=== PATIENT | male | born 1940 | race Caucasian/White ===

== ENCOUNTER 2017-06-02 09:22 | Inpatient (IN) | payer MEDICARE, BC ==
--- NOTE | 2017-05-27 16:13 | HP ---
HISTORY AND PHYSICAL: DATE OF SURGERY: 06/02/17 DATE OF OFFICE VISIT: 05/22/17 SURGEON: Melissa Hough MD * (DICTATED BY NIGHAT HOWARD) PROCEDURE: Revision of a left total knee arthroplasty. CHIEF COMPLAINT: Left knee pain. HISTORY OF PRESENT ILLNESS: Mr. Rodríguez is a 77-year-old gentleman with complaints of left knee pain, he is status post left total knee arthroplasty. He has failed conservative management. He has elected to proceed with a revision of a left total knee arthroplasty, which is scheduled for 06/02/[address] Hough. PAST MEDICAL HISTORY: Sleep apnea, history of prostate cancer. PAST SURGICAL HISTORY: Prostatectomy, bilateral total knee arthroplasties, tonsillectomy, and penile implant. CURRENT MEDICATIONS: 1. Exelon. 2. [place]orest. 3. Fish oil. 4. Multivitamin. ALLERGIES: No known drug allergies. FAMILY HISTORY: Diabetes, stroke, heart disease, prostate cancer. SOCIAL HISTORY: He is a 77-year-old gentleman. He lives with his . He does not smoke, use drugs or alcohol. REVIEW OF SYSTEMS: A complete 14-point review of systems was reviewed with the patient, was all negative and noncontributory. PHYSICAL EXAMINATION GENERAL: He is well developed, well nourished, in no acute distress. VITAL SIGNS: He stands 6 feet tall, weighs 215 pounds. Blood pressure 115/69, heart rate 66. HEENT: Normocephalic, atraumatic. NECK: Supple. No palpable lymph nodes. PULMONARY: Lungs are clear to auscultation bilaterally. CARDIO: Regular rate and rhythm. Strong S1, S2. ABDOMEN: Soft, nontender, nondistended. NEUROLOGIC: Alert and oriented x3. Cranial nerves II through XII are intact. MUSCULOSKELETAL: Left lower extremity, the skin is intact. There are no open wounds or abrasions. There is a moderate effusion, 10 to 120 degrees of flexion with patellofemoral crepitus, 5/5 lower extremity strength, 2+ dorsalis pedis pulses, and intact sensation. ASSESSMENT AND PLAN: Mr. Rodríguez is a 77-year-old gentleman, who had a left total knee arthroplasty with Dr. Mederos in 2006. Over the last 5 years, he has developed increasing pain in his left knee and he has failed conservative management. He has elected to proceed with a revision of a left total knee arthroplasty, the surgery is scheduled for 06/02/[address] Hough discussed the risks and benefits of the surgery at today's visit and all of his questions were answered. Coumadin and Colace were sent to his pharmacy for postoperative DVT prophylaxis. He currently has a prescription for pain medication, so no pain medications were sent at today's visit. He will follow up with Dr. Hough 2 weeks after the surgery. NIGHAT HOWARD [id number]/[facility] #: [id number] MARY
[~2017-06-02 09:22] MED LIST: Buffered Lidocaine 0.9% SYRIN* 5 ML/SYR SYRINGE INTRADERM ONE; Famotidine IV* 10 MG/ML 2 ML (20 mg) IV ONE
[2017-06-02] MEDS ORDERED: Famotidine IV* 10 MG/ML 2 ML (20 mg) ONE (09:31)
[2017-06-02] MEDS ORDERED: Buffered Lidocaine 0.9% SYRIN* 5 ML/SYR SYRINGE ONE (09:31)
[2017-06-02] MEDS ORDERED: ceFAZolin 2 GM in 100 MLS NS (*) BAG IVPB ONE (09:31)
[2017-06-02] MEDS ORDERED: Bupivacaine 0.5% SDV PF* 30 ML VIAL ONE (11:03)
[2017-06-02] MEDS ORDERED: Ketorolac INJ* 30 MG/ML 1 ML VIAL ONE (11:03)
[2017-06-02] MEDS ORDERED: Ondansetron INJ* 2 MG/ML VIAL ONE (11:03)
[2017-06-02] MEDS ORDERED: Dexamethasone IV* 4 MG/ML 1 ML (4 MG) ONE (11:03)
[2017-06-02] MEDS ORDERED: Lidocaine 2% PF * 5 ML VIAL ONE (11:03)
[2017-06-02] MEDS ORDERED: Propofol* 10 MG/ML 20 ML BTL IV PUSH ONE (11:03)
[2017-06-02] MEDS ORDERED: KETAMINE HCL* 50 MG/ML 10 ML VIAL ONE (11:03)
[2017-06-02] MEDS ORDERED: fentaNYL* 50 MCG/ML 2 ML VIAL (100 MCG VIAL) ONE (11:03)
[2017-06-02] MEDS ORDERED: Midazolam* 1 MG/ML 5 ML VIAL (5 MG) ONE (11:04)
[2017-06-02] MEDS ORDERED: Morphine PF AMP (0.5MG/ML)* 5 MG/10 ML AMP ONE (11:04)
[2017-06-02] MEDS ORDERED: Propofol* 500 MG/50 ML BTL ONE (13:59)
[2017-06-02] MEDS ORDERED: Phenylephrine IV* 40 MCG/ML 10 ML SYRINGE ONE (14:56)
--- NOTE | 2017-06-02 15:50 | CONS ---
CONSULTATION NOTE: DATE OF CONSULTATION: 06/02/17 PROCEDURE: Placement of urethral coude catheter, 14-Azerbaijani. HISTORY OF PRESENT ILLNESS: Mr. Rodríguez is a 77-year-old male who is scheduled today to have a revision of a total knee prosthesis by Dr. Hough. Patient had radical prostatectomy in 2002 for prostate carcinoma by Dr. Stern in [place]. In 2010, he had placement of an inflatable penile prosthesis. Both procedures seem to have gone well. He has not had any voiding symptoms and no hematuria or urinary tract infections. Because of concern about possible urethral stricture or bladder neck contracture, consultation was requested by Dr. Torres for placement of a urethral catheter preoperatively. On exam, he has no suprapubic distention. The external genitalia looked normal. It is circumcised. I could feel the penile prosthesis in the correct position. Exam of the testes felt normal. PROCEDURE IN DETAIL: Patient was prepped and draped for urethral catheterization. A size 14-Azerbaijani coude catheter was then passed inside the bladder without any trauma and no resistance was encountered in the urethra or at the bladder neck. Clear urine was drained. The plan is to keep the Patricia catheter as per routine for joint replacement. I do not expect that he will have any voiding problems postoperatively. If there are problems with voiding or hematuria, I will see him in followup. [id number]/[facility] #: [id number] MARY
[2017-06-02] MEDS ORDERED: Acetaminophen IV 1GM/100ML * 100 ML IVPB ONE (16:37)
[2017-06-02] MEDS ORDERED: Ondansetron INJ* 2 MG/ML VIAL IV PRN ×2 (16:37→16:39)
[2017-06-02] MEDS ORDERED: oxyCODONE/Acetamin 5/325 MG* TAB PO PRN ×2 (16:39)
[2017-06-02] MEDS ORDERED: diPHENhydraMINE IV* 50 MG/ML 1 ml VIAL (BENADRYL) IV PRN (16:39)
[2017-06-02] MEDS ORDERED: EPHEDrine (Pressors)* 50 MG/ML VIAL IV PUSH PRN (16:39)
[2017-06-02] MEDS ORDERED: Lactated Ringers 500 ml BAG* 500 ML IV PRN (16:39)
[2017-06-02] MEDS ORDERED: Naloxone* 0.4 MG/ML 1 ML VIAL IV PRN (16:44)
[2017-06-02] MEDS ORDERED: Ropivacaine* 300 MG in NS 0.9% 250 ML* 240 ML EPIDURAL SCH (17:00)
[2017-06-02] MEDS ORDERED: Acetaminophen TAB* 325 MG PO PRN (17:12)
[2017-06-02] MEDS ORDERED: Bisacodyl SUPP* 10 MG SUPP PR PRN (17:12)
[2017-06-02] MEDS ORDERED: Polyethylene Glycol 3350* 17 GM PACKET PO PRN (17:12)
[2017-06-02] MEDS ORDERED: diPHENhydraMINE IV* 50 MG/ML 1 ml VIAL (BENADRYL) ONE (18:15)
[2017-06-02] MEDS ORDERED: QUEtiapine TAB* 25 MG PO PRN (18:29)
[2017-06-02] MEDS ORDERED: ceFAZolin 1 GM VIAL(*) 1 GM in NS 0.9% 50 ML* 50 ML IVPB SCH (20:00)
[2017-06-02] MEDS ORDERED: Warfarin TAB(*) 6 MG PO ONE (20:00)
--- NOTE | 2017-06-02 20:06 | RAD ---
CPT II Codes: 6045F INDICATION: Left total knee revision TECHNIQUE: Intraoperative fluoroscopy was provided during left total knee revision surgery. FINDINGS: 2 spot films depict anatomic placement of a left knee prosthesis. Fluoroscopy time: 16 seconds IMPRESSION: As above.
--- NOTE | 2017-06-02 20:10 | RAD ---
INDICATION: Status post left total knee arthroplasty revision COMPARISON: Left knee radiograph dated March 11, 1970 TECHNIQUE: 2 views of the left femur, 3 views of the left knee and 3 views left lower leg were obtained. FINDINGS: There are advanced degenerative changes at the right hip including resorption and sclerotic remodeling of the left femoral head with obliteration of the left hip joint space and exuberant marginal osteophyte formation. A left femurs cortically intact. The left knee prosthesis is anatomically aligned without evidence of periprostatic fracture. AP and lateral views of the tibia and fibula show the bones to be intact and appropriately aligned. IMPRESSION: 1. Anatomic alignment of left knee prosthesis. 2. Advanced degenerative change with sclerotic bony remodeling of the left hip noted in the AP view.
[2017-06-02] MEDS: Docusate CAP* 100 MG PO SCH (20:11)
[2017-06-02] MEDS: Magnesium Hydroxide LIQ* 30 ML UDC PO SCH (20:11)
[2017-06-02] MEDS: CMCS Rivastigmine CAP(NF) 1.5 MG CAP PO SCH (21:05)
[2017-06-02] MEDS: ceFAZolin 1 GM VIAL(*) 1 GM in NS 0.9% 50 ML* 50 ML IVPB SCH (21:58)
--- NOTE | 2017-06-02 22:50 | CONS ---
CC: Blu Fields NP * MEDICINE CONSULTATION REPORT: DATE OF CONSULTATION: 06/02/17 PROVIDER: Sarah Bowles NP CONSULTING PHYSICIAN: Kathryn Ballard MD (as dictated by Sarah Bowles NP) PRIMARY CARE PROVIDER: Blu Fields NP REQUESTING PHYSICIAN: Melissa Hough MD, Orthopedic Surgery. REASON FOR CONSULTATION: Co-medical management following left total knee revision. HISTORY OF PRESENT ILLNESS: Mr. Rodríguez is a 77-year-old gentleman, who is status post a left knee arthroplasty in [address] Mederos. Since that surgery, the patient has had progressive pain to the left knee. He has been on Celebrex, which was discontinued secondary to diarrhea. He has failed other outpatient conservative management. He has elected to proceed with the revision of the left total knee with Dr. Hough. Prior to arrival, the patient denies any recent illness, chest pain, shortness of breath. Currently, the patient is in PACU and is unable to provide me with much history. His , Tessie, is at bedside, but reports no complaints or concerns that she is aware of. PAST MEDICAL HISTORY: Includes: 1. NALINI. 2. History of hypertension, not on medications. 3. History of COPD, not on medication. 4. Memory impairment 5. History of prostate cancer, status post prostatectomy in 2002. 6. History of bilateral total knee arthroplasties. 7. History of tonsillectomy. 8. Penile implant. 9. Status post prostatectomy. HOME MEDICATIONS: 1, [place] 5/325 one tab q.6 hours p.r.n. 2. Rivastigmine 1.5 mg b.i.d. 3. [place] 3 fatty acids 20 capsules q.a.m. ALLERGIES: No known drug allergies. FAMILY HISTORY: Per the records, the patient's father at age 73 secondary to an CO and his mother at age 56 secondary to CVA. The patient has 4 siblings, who are all alive and in good health. SOCIAL HISTORY: The patient is a former smoker. He quit 33 years ago. He drinks occasional alcohol. No history of illicit drug use. 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 He is . His , Tessie Rodríguez, is his healthcare proxy. REVIEW OF SYSTEMS: As per HPI, other than mentioned are negative. PHYSICAL EXAMINATION: General: Mr. Rodríguez is a well-developed, well-nourished older gentleman, who is awake, pleasant, though somewhat confused, lying in the PACU stretcher in no acute distress. He is somewhat restless. Vital signs: Temperature 96.8, heart rate 60, respiratory rate 18, blood pressure 101/68, O2 saturation is 95% on 2 L nasal cannula. HEENT: Head is atraumatic, normocephalic. Face is symmetrical. Pupils are equal, round, and reactive to light. Extraocular movements are intact. Oral mucosa appears moist. Neck is supple. No lymphadenopathy noted. No JVD noted. Cardiac: S1, S2 heart sounds. Regular rate and rhythm. No murmurs noted. There is no peripheral edema. Lungs are clear to auscultation bilaterally. Abdomen is soft, nontender , nondistended. Musculoskeletal: The patient is moving all extremities. He does have good distal movement to the left lower extremity following surgery. Skin: Limited assessment, but grossly intact. The patient has a clean, dry, and intact dressing to the left knee with cryotherapy cuff in place. Neuro: The patient is alert, he is mildly confused. He is oriented to himself, his , as well as location, not oriented to time. He is inconsistently following commands. No focal deficits noted. The patient is moving all extremities. ASSESSMENT AND PLAN: Mr. Rodríguez is a 77-year-old gentleman, who is status post left total knee revision with Dr. Hough. He will be admitted to the surgical short stay unit. Plan is as follows: 1. History of obstructive sleep apnea. The patient apparently had a 50-pound weight loss and no longer utilizes his BiPAP machine. Continue to monitor patient overnight for hypoxia and continue supplemental O2. 2. History of hypertension. The patient is not on medications and is currently hypotensive. Continue to trend his blood pressures, IV fluids. 3. History of chronic obstructive pulmonary disease. Not on any maintenance inhalers. At baseline, the patient does not use inhalers or supplemental oxygen. 3. Memory impairment. Continue home Exelon. 4. History of prostate cancer, status post prostatectomy, now with penile implant. The patient was seen in consultation by Dr. Conner prior to surgery. The patient had a Patricia catheter placed by Urology. Per Dr. Conner's notes , there was no suspicion for difficulty to void postoperatively. The patient should keep Patricia catheter per routine and if there is difficulty with voiding or hematuria, Urology should be reconsulted. 5. Status post left total knee revision, management per Ortho. 6. DVT prophylaxis, per Ortho. TIME SPENT: Time spent on this consultation was approximately 45 minutes, more than half that time was spent [id number] with the patient obtaining history and physical, performing physical examination, and reviewing the plan of care. Plan of care was also reviewed with my attending, Dr. Ballard, who is in agreement. SARAH BOWLES, TRADE MARKER [id number]/[facility] #: [id number] MARY
[2017-06-03 05:17] LABS: Hematocrit 31 % (42-52); Hemoglobin 10.5 g/dl (14.0-18.0)
[2017-06-03] MEDS: ceFAZolin 1 GM VIAL(*) 1 GM in NS 0.9% 50 ML* 50 ML IVPB SCH ×2 (05:23→13:43)
[2017-06-03 05:27] LABS: BUN/Creatinine Ratio 25.3 (8-20); Calcium 8.6 mg/dL (8.6-10.3); EGFR African American 94.5 (>60); EGFR Non-African American 73.5 (>60); Potassium 4.2 mmol/L (3.5-5.0)
[2017-06-03] MEDS ORDERED: Ondansetron INJ* 2 MG/ML VIAL IV PRN (06:00)
[2017-06-03] MEDS ORDERED: oxyCODONE/Acetamin 5/325 MG* TAB PO PRN (06:00)
[2017-06-03] MEDS ORDERED: oxyCODONE TAB* 5 MG TAB PO PRN (06:00)
[2017-06-03] MEDS ORDERED: diPHENhydraMINE PO* 25 MG PO PRN (06:00)
[2017-06-03] MEDS ORDERED: Ondansetron TAB* 4 MG PO PRN (06:00)
[2017-06-03] MEDS ORDERED: Morphine INJ* 10 MG/ML 1 ML SYRINGE IV PRN (06:00)
[2017-06-03] MEDS: Magnesium Hydroxide LIQ* 30 ML UDC PO SCH ×2 (07:17→21:17)
[2017-06-03] MEDS: CMCS Rivastigmine CAP(NF) 1.5 MG CAP PO SCH ×2 (08:37→20:45)
[2017-06-03] MEDS: Docusate CAP* 100 MG PO SCH ×2 (08:37→20:45)
[2017-06-03] MEDS: oxyCODONE/Acetamin 5/325 MG* TAB PO PRN ×3 (08:38→18:04)
--- NOTE | 2017-06-03 09:20 | OP ---
OPERATIVE REPORT: DATE OF OPERATION: 06/02/17 DATE OF : 42 SURGEON: Melissa Hough MD PROJECT MANAGEMENT DIRECTOR: NIGHAT Diallo Ms. did help throughout the procedure with preparation of the leg, wound retraction, manipulation of the knee, and wound closure. ANESTHESIOLOGIST: Bill Wright MD ANESTHESIA: Spinal. 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 OPERATIVE PROCEDURE: Revision, left total knee arthroplasty. INDICATIONS: Mr. Rodríguez is a 77-year-old gentleman I have known for several years. He had a 2009 left total knee arthroplasty with an outside surgeon. Over the last 2 years, the patient has developed severe left knee pain. This started around his medial joint line and then became keturah-patellar knee pain. Radiographs showed some medial tibial baseplate loosening, medial femoral loosening, and significant heterotrophic ossification along the patellar region. I offered the patient a left revision total knee arthroplasty for periprosthetic osteolysis and heterotrophic ossification formation. He elected to undergo a left revision total knee arthroplasty due to continued pain and decreased quality of life. Informed consent was obtained from the patient. He understood the risks of the surgery included, but were not limited to bleeding, infection, damage to nearby structures, continued pain, need for further surgery , intraoperative fracture, nerve palsy, loss of motion, knee stiffness, instability, failure of the components, stroke, heart attack, blood clot, and . He wished to proceed. TOURNIQUET TIME: 76 minutes. ESTIMATED BLOOD LOSS: 400 cc. COMPLICATIONS: None. SPECIMENS: Bone, cartilage, and implants sent to Pathology from the left knee joint. Multiple culture swabs sent to Microbiology from the knee joint for aerobic and anaerobic cultures and sensitivities. HARDWARE USED: This was DePuy revision total knee hardware. Two packages of Simplex cement with tobramycin were used. For the femur, a SIGMA femoral TC3 cemented size 4 left femur with a femoral adapter bolt and 5-degree femoral adapter. Two distal 4-mm augments were used both medially and laterally. The stem used was a universal stem, uncemented 75 x 20 mm. For the tibia, a metaphyseal sleeve T revision size 45 was used. For the tibia, a size 4 cemental tibial tray rotating platform MBT revision with a 75 x 14 uncemented universal fluted stem. For the insert, a SIGMA tibial insert rotating platform TC3 size 4, 17.5 thickness. INTRAOPERATIVE FINDINGS: Intraoperatively, the patient was noted to have extensive heterotrophic ossification along the patella. Significant scar tissue around the patella. The patient had periprosthetic osteolysis worse around the medial femoral component and medial tibial baseplate. After removal of the implants, the patient had significant posteromedial bone loss along the medial tibial plateau. DESCRIPTION OF PROCEDURE: Mr. Rodríguez was identified in the preanesthesia unit. His left lower extremity was marked as the correct operative side. Informed consent was signed and placed in the chart. The patient was taken to the operating room and placed under spinal anesthesia. A Patricia catheter had already been placed in the preanesthesia unit by Dr. Conner, his urologist. Tourniquet was placed on the left thigh. Left lower extremity was prepped and draped in the usual sterile fashion. Preop time-out was made to correctly identify the patient's side and site. Appropriate perioperative antibiotics were given within 1 hour of incision. Tourniquet was inflated. The patient's prior midline incision was used. 10- blade was used to dissect down to the extensor mechanism. A new 10-blade was then used to make a standard medial parapatellar arthrotomy. There was not a copious amount of joint fluid. There was no obvious purulence. Several culture swabs were obtained and sent to Microbiology for cultures and sensitivities. Electrocautery was used to subperiosteally elevate the soft tissue along the superomedial tibia to the mid sagittal plane. Freddy and Bovie were used to perform excision of medial and lateral capsule, which did have a brown camara appearance due to metallosis and polyethylene wear. The soft tissue was carefully excised. The knee was flexed up. Probing around the implant showed some osteolysis along the medial femoral condyle and medial tibial plate. The insert was carefully removed. A small oscillating saw was then used to break the barrier between the implants and cement along the entire surface of the femur. A punch was used to remove the femoral component with very little bone loss noted. Next, the tibia was subluxed anteriorly. Both rigid and flexible osteotomes were used as well as the small oscillating saw to break the cement hardware barrier. A punch was used to carefully elevate the tibia. Once the tibial baseplate was removed, it was noted that there was a significant amount of posteromedial bone loss. At this point, hand reamers were used up to a size 14 in the tibial canal. Any cement was carefully removed. A cleanup cup was made along the proximal tibia. The size 14 stem and broach had the best fit. Due to the significant bone loss along the posteromedial tibia, a metaphyseal sleeve was chosen. The sleeves were sequentially broached up to a size 45. The 45 sleeve had excellent fit. A size 4 tibial tray trial had a good fit. This metaphyseal sleeve trial with a tibial tray trial was placed and had good stability. Attention was turned to the femur. Hand broaching of the canal was performed up to a size 20. The distal cutting guide was pinned on the distal femur. A cleanup cut of the distal femur was carefully made. It was noted that there was 4 mm of distal femoral bone loss. Decision was made to place distal augments. Next, the femur was sized to a size 4. Cleanup cuts were made through size 4 muti-cutting jig. The TC3 box cutting guide was then pinned on the distal femur and the appropriate cuts with a TC3 femur box were made. The femoral trial was made and placed on the distal femur. This trial had excellent fit. A 15-mm insert trial was placed and the knee was taken through range of motion. The knee had full extension to 130 degrees of flexion. The patella was carefully everted. There was a large amount of heterotrophic ossification along the lateral patella and significant scar tissue overgrowth of the patella. This was carefully cleared away. The patella was found to have very little varner and was not loose. Decision was made to leave the prior patella in place. A rongeur was used to carefully remove the heteroscopic ossification along the lateral patella. All trials were carefully removed. The tourniquet had been turned down at 65 minutes and was reinflated for cementing of the implants. The implants were assembled. Two packages of Simplex with tobramycin were used with careful cementing technique. First the tibial implants were placed followed by the femur. A 17.5 trial insert was placed and the knee was brought out into full extension. Tourniquet was turned down at 76 minutes. The cement was allowed to fully cure. The knee was copiously irrigated. Electrocautery was used to obtain meticulous hemostasis. Once the cement had fully cured, the insert trial was removed. Any excess cement was carefully removed from around the implants and capsule. 17.5 size 4 tibial insert rotating platform TC3 was chosen. This was placed in the tibial tray without difficulty. Final range of motion was full extension to 130 degrees of flexion with good medial and lateral ligamentous stability. Good patellofemoral tracking. The knee was copiously irrigated with sterile saline. The extensor mechanism was closed using interrupted #1 Vicryl's. The rest of the incision was closed in a layered fashion using 0 and 2-0 Vicryl's. Skin was closed using running 3- 0 nylon suture. A drain was not placed because of the patient's refusal to have blood products due to his zoroastrianism. Skin was covered with Xeroform, 4x4's, and Webril. Blue wrap and cold pack were placed over this. The patient's anesthesia was reversed without difficulty and he is taken to the PACU in stable condition. Intended weightbearing will be weightbearing as tolerated. Intended DVT prophylaxis will be Coumadin with a Lovenox bridge. [id number]/[facility] #: [id number] MARY
--- NOTE | 2017-06-03 10:21 | PN ---
Progress Note - Progress Note Date of Service: 06/03/17 SOAP: Subjective: []Patient seen OOB in chair, doing very well. Alert and oriented. Pain well managed. He denies, SOB, CP, or dizziness. Objective: [] Vital Signs Temp 97.4 F 06/03/17 03:34 Pulse 68 06/03/17 03:34 Resp 18 06/03/17 08:38 BP 100/65 06/03/17 03:43 Pulse Ox 97 06/03/17 03:34 Intake & Output 06/02/17 06/03/17 06/03/17 18:59 06:59 18:59 Intake Total 1485 225 Output Total 300 450 Balance -300 1035 225 Weight 214 lb Intake: IV Fluids 905 LR 905 Oral 580 225 Output: Patricia 300 450 Laboratory Results - last 24 hr 06/03/17 06/03/17 06/03/17 04:55 04:55 04:55 Hgb 10.5 L Hct 31 L INR (Anticoag Therapy) 1.02 Sodium 135 Potassium 4.2 Chloride 103 Carbon Dioxide 30 Anion Gap 2 BUN 25 H Creatinine 0.99 Est GFR ( Amer) 94.5 Est GFR (Non-Af Amer) 73.5 BUN/Creatinine Ratio 25.3 H Glucose 154 H Calcium 8.6 Left knee HUMBERTO is dry and intact able to do active SLR calf NT +DF/PF left ankle sensation intact distally Assessment: []s/p revision left total knee arthroplasty POD #1 Plan: []PT/OT WBAT LLE Coumadin w Lovenox bridge- 8 mg today PMRU rehab consult as requested by patient
[2017-06-03] MEDS ORDERED: Enoxaparin(*) 30 MG/0.3 ML SYR SUBCUT SCH (11:00)
--- NOTE | 2017-06-03 12:28 | PN ---
Subjective Date of Service: 06/03/17 Interval History: Patient seen and examined at bedside. Patient is forgetful and impulsive, but understand he is in the hospital, oriented to year and president. Reports good pain control, good appetite. No acute concerns Family History: Unchanged from Admission Social History: Unchanged from Admission Past Medical History: Unchanged from Admission Objective Active Medications: Acetaminophen (Tylenol Tab*) 650 mg PO Q4H PRN PRN Reason: mild pain or fever Bisacodyl (Dulcolax Supp*) 10 mg ME DAILY PRN PRN Reason: constipation Diphenhydramine HCl (Benadryl Iv*) 12.5 mg IV Q6H PRN PRN Reason: PRURITIS Diphenhydramine HCl (Benadryl Po*) 25 mg PO Q6H PRN PRN Reason: INSOMNIA Docusate Sodium (Colace Cap*) 100 mg PO BID [facility] Last Admin: 06/03/17 08:37 Dose: 100 mg Enoxaparin Sodium (Lovenox(*)) 30 mg SUBCUT Q24H [facility] Last Admin: 06/03/17 10:02 Dose: 30 mg Lactated Ringer's (Lactated Ringers 1000 Ml Bag*) 1,000 mls @ 100 mls/hr IV PER RATE [facility] Last Admin: 06/03/17 05:16 Dose: 100 mls/hr Cefazolin Sodium 1 gm/ Sodium (Chloride) 50 mls @ 200 mls/hr IVPB 0600,1400, 2200 [facility] Stop: 06/03/17 14:14 Last Admin: 06/03/17 05:23 Dose: 200 mls/hr Lactulose (Lactulose*) 30 ml PO Q6H PRN PRN Reason: constipation Magnesium Hydroxide (Milk Of Magnesia Liq*) 30 ml PO BID [facility] Last Admin: 06/03/17 07:17 Dose: Not Given Morphine Sulfate (Morphine Inj (Syringe)*) 5 mg IV Q2H PRN PRN Reason: PAIN Ondansetron HCl (Zofran Inj*) 4 mg IV Q6H PRN PRN Reason: nausea Ondansetron HCl (Zofran Tab*) 4 mg PO Q6H PRN PRN Reason: NAUSEA Oxycodone HCl (Roxycodone Tab*) 10 mg PO Q4H PRN PRN Reason: breakthrough pain Oxycodone/Acetaminophen (Percocet 5/325 Tab*) 1 tab PO Q3H PRN PRN Reason: PAIN - MODERATE Oxycodone/Acetaminophen (Percocet 5/325 Tab*) 2 tab PO Q3H PRN PRN Reason: PAIN - MODERATE Last Admin: 06/03/17 08:38 Dose: 2 tab Polyethylene Glycol/Electrolytes (Miralax*) 17 gm PO DAILY PRN PRN Reason: Constipation Quetiapine Fumarate (Seroquel Tab*) 12.5 mg PO DAILY PRN PRN Reason: AGITATION/ANXIETY Rivastigmine Tartrate (Exelon (Nf)) 1.5 mg PO BID KIRSTY PRN Reason: Protocol Last Admin: 06/03/17 08:37 Dose: 1.5 mg Warfarin Sodium (Coumadin Tab(*)) 8 mg PO ONCE@1700 ONE PRN Reason: Protocol Stop: 06/03/17 17:01 Vital Signs 06/02/17 06/02/17 06/02/17 17:36 17:45 17:50 Temperature 96.8 F Pulse Rate 58 56 58 Respiratory 16 16 16 Rate Blood Pressure 112/67 92/43 92/47 (mmHg) O2 Sat by Pulse 96 99 97 Oximetry 06/02/17 06/02/17 06/02/17 17:55 18:10 18:21 Temperature Pulse Rate 62 63 67 Respiratory 16 16 16 Rate Blood Pressure 101/68 119/47 98/72 (mmHg) O2 Sat by Pulse 97 95 95 Oximetry 06/02/17 06/02/17 06/02/17 19:05 19:14 19:30 Temperature 97.5 F 96.9 F Pulse Rate 54 68 50 Respiratory 16 16 14 Rate Blood Pressure 96/61 101/61 104/58 (mmHg) O2 Sat by Pulse 97 98 99 Oximetry 06/02/17 06/02/17 06/02/17 19:36 20:03 20:38 Temperature 96.9 F 97.6 F Pulse Rate 50 59 Respiratory 14 17 16 Rate Blood Pressure 104/58 115/55 (mmHg) O2 Sat by Pulse 99 98 Oximetry 06/02/17 06/02/17 06/03/17 21:37 23:29 01:38 Temperature 97.8 F 97.5 F 97.4 F Pulse Rate 85 89 75 Respiratory 15 16 17 Rate Blood Pressure 96/62 101/66 93/54 (mmHg) O2 Sat by Pulse 99 99 99 Oximetry 06/03/17 06/03/17 06/03/17 01:49 02:54 03:34 Temperature 97.4 F Pulse Rate 68 Respiratory 16 Rate Blood Pressure 102/60 94/58 (mmHg) O2 Sat by Pulse 99 97 Oximetry 06/03/17 06/03/17 06/03/17 03:43 05:14 07:13 Temperature 97.9 F Pulse Rate 71 Respiratory 16 16 Rate Blood Pressure 100/65 86/47 (mmHg) O2 Sat by Pulse 96 Oximetry 06/03/17 06/03/17 06/03/17 07:14 08:00 08:38 Temperature Pulse Rate Respiratory 18 18 18 Rate Blood Pressure (mmHg) O2 Sat by Pulse Oximetry 06/03/17 06/03/17 10:34 11:14 Temperature 98.3 F Pulse Rate 69 Respiratory 18 16 Rate Blood Pressure 113/56 (mmHg) O2 Sat by Pulse 96 Oximetry Oxygen Devices in Use Now: None Appearance: Male patient, pleasant, OOB to chair, NAD Eyes: No Scleral Icterus Ears/Nose/Mouth/Throat: Clear Oropharnyx, Mucous Membranes Moist Neck: NL Appearance and Movements; NL JVP Respiratory: Symmetrical Chest Expansion and Respiratory Effort, Clear to Auscultation Cardiovascular: NL Sounds; No Murmurs; No JVD, RRR Abdominal: NL Sounds; No Tenderness; No Distention Extremities: No Edema, - - left knee dressing cdi Neurological: - - Alert, oriented to self, place, mostly to time, forgetful Lines/Tubes/Other Access: Clean, Dry and Intact Peripheral IV Nutrition: Taking PO's Result Diagrams: 06/03/17 04:55 06/03/17 04:55 Microbiology and Other Data: Microbiology 06/02/17 14:20 Anaerobic Culture - Preliminary Wound - Knee Left No Growth Day 1 Gram Stain - Final Wound Culture - Preliminary No Growth Day 1 Assess/Plan/Problems-Billing Assessment: Mr. Rodríguez is a 77 yo male with a PMH of NALINI, memory impairment, HTN, COPD, and prostate ca who is now s/p left knee arthroplasty revision. - Patient Problems (1) Status post revision of total replacement of left knee Code(s): Z96.652 - PRESENCE OF LEFT ARTIFICIAL KNEE JOINT Comment: POD #1 Management per ortho HH stable PT/OT (2) NALINI (obstructive sleep apnea) Code(s): G47.33 - OBSTRUCTIVE SLEEP APNEA (ADULT) (PEDIATRIC) Comment: Had significant weight loss and has been off CPAP Supplemental O2 overnight per protocol Wean O2 (3) Memory impairment Code(s): R41.3 - OTHER AMNESIA Comment: Continue rivastigmine. (4) HTN (hypertension) Code(s): I10 - ESSENTIAL (PRIMARY) HYPERTENSION Comment: Normotensive Not on home medications (5) COPD (chronic obstructive pulmonary disease) Code(s): J44.9 - CHRONIC OBSTRUCTIVE PULMONARY DISEASE, UNSPECIFIED Comment: Stable Not on chronic medications (6) History of prostate cancer Code(s): Z85.46 - PERSONAL HISTORY OF MALIGNANT NEOPLASM OF PROSTATE Comment: Prostatectomy in 2002 With hx of penile implant (7) DVT prophylaxis Comment: Per ortho Enoxaparin and warfarin Status and Disposition: Inpatient admission. Dispo per ortho.
[2017-06-03] MEDS ORDERED: Warfarin TAB(*) 4 MG PO ONE (17:00)
[2017-06-03] MEDS: diPHENhydraMINE IV* 50 MG/ML 1 ml VIAL (BENADRYL) IV PRN ×2 (17:07→23:47)
[2017-06-04] MEDS: oxyCODONE/Acetamin 5/325 MG* TAB PO PRN (04:02)
[2017-06-04 05:53] LABS: Hematocrit 27 % (42-52); Hemoglobin 9.2 g/dl (14.0-18.0)
[2017-06-04] MEDS ORDERED: Acetaminophen TAB* 325 MG PO SCH (08:00)
--- NOTE | 2017-06-04 08:15 | PN ---
Progress Note - Progress Note Date of Service: 06/04/17 SOAP: Subjective: Pt. is alert, reports pain is controlled. at bedside feels he is ready to go home. Objective: LLE - dressing changed, mod ss drainage. min effusion. distally nvi. Vital Signs: Temp Pulse Resp BP Pulse Ox 98.2 F 79 17 103/55 97 06/04/17 07:31 06/04/17 07:31 06/04/17 07:31 06/04/17 07:31 06/04/17 07:31 Laboratory Results - last 24 hr 06/04/17 06/04/17 05:33 05:33 Hgb 9.2 L Hct 27 L INR (Anticoag Therapy) 1.14 H Assessment: 77 yo M pod 2 s/p revision LTKA Plan: wbat lle pt/ot d/c lovenox. switch to ecasa for d/c d/c to home today
[2017-06-04] MEDS: Docusate CAP* 100 MG PO SCH (08:19)
[2017-06-04] MEDS: Magnesium Hydroxide LIQ* 30 ML UDC PO SCH (08:19)
[2017-06-04] MEDS: CMCS Rivastigmine CAP(NF) 1.5 MG CAP PO SCH (08:19)
[2017-06-04] MEDS ORDERED: traMADol TAB* 50 MG PO PRN ×2 (08:45→08:46)
[2017-06-04] MEDS ORDERED: oxyCODONE/Acetamin 5/325 MG* TAB PO PRN ×3 (08:46→08:57)
--- NOTE | 2017-06-04 08:51 | PN ---
Subjective Date of Service: 06/04/17 Interval History: Patient seen and examined at bedside. in room. Patient did not sleep well overnight. Reports some increased knee pain this morning. Discussed changing Tylenol to around the clock dosing for better pain control, in addition to oxycodone. Denies fever/chills, CP, SOB. Family History: Unchanged from Admission Social History: Unchanged from Admission Past Medical History: Unchanged from Admission Objective Active Medications: Acetaminophen (Tylenol Tab*) 975 mg PO Q8H [facility] Last Admin: 06/04/17 08:19 Dose: 975 mg Bisacodyl (Dulcolax Supp*) 10 mg CA DAILY PRN PRN Reason: constipation Diphenhydramine HCl (Benadryl Iv*) 12.5 mg IV Q6H PRN PRN Reason: PRURITIS Last Admin: 06/03/17 23:47 Dose: 12.5 mg Diphenhydramine HCl (Benadryl Po*) 25 mg PO Q6H PRN PRN Reason: INSOMNIA Docusate Sodium (Colace Cap*) 100 mg PO BID [facility] Last Admin: 06/04/17 08:19 Dose: 100 mg Lactated Ringer's (Lactated Ringers 1000 Ml Bag*) 1,000 mls @ 100 mls/hr IV PER RATE [facility] Last Admin: 06/03/17 15:46 Dose: 100 mls/hr Lactulose (Lactulose*) 30 ml PO Q6H PRN PRN Reason: constipation Magnesium Hydroxide (Milk Of Magnesia Liq*) 30 ml PO BID [facility] Last Admin: 06/04/17 08:19 Dose: 30 ml Morphine Sulfate (Morphine Inj (Syringe)*) 5 mg IV Q2H PRN PRN Reason: PAIN Ondansetron HCl (Zofran Inj*) 4 mg IV Q6H PRN PRN Reason: nausea Ondansetron HCl (Zofran Tab*) 4 mg PO Q6H PRN PRN Reason: NAUSEA Oxycodone HCl (Roxycodone Tab*) 10 mg PO Q4H PRN PRN Reason: breakthrough pain Oxycodone/Acetaminophen (Percocet 5/325 Tab*) 1 tab PO Q3H PRN PRN Reason: PAIN - MODERATE Oxycodone/Acetaminophen (Percocet 5/325 Tab*) 2 tab PO Q3H PRN PRN Reason: PAIN - MODERATE Last Admin: 06/04/17 04:02 Dose: 2 tab Polyethylene Glycol/Electrolytes (Miralax*) 17 gm PO DAILY PRN PRN Reason: Constipation Quetiapine Fumarate (Seroquel Tab*) 12.5 mg PO DAILY PRN PRN Reason: AGITATION/ANXIETY Rivastigmine Tartrate (Exelon (Nf)) 1.5 mg PO BID KIRSTY PRN Reason: Protocol Last Admin: 06/04/17 08:19 Dose: 1.5 mg Vital Signs 06/03/17 06/03/17 06/03/17 10:34 11:14 13:37 Temperature 98.3 F Pulse Rate 69 Respiratory 18 16 18 Rate Blood Pressure 113/56 (mmHg) O2 Sat by Pulse 96 Oximetry 06/03/17 06/03/17 06/03/17 15:36 15:37 17:07 Temperature 97.5 F Pulse Rate 66 Respiratory 18 16 18 Rate Blood Pressure 114/57 (mmHg) O2 Sat by Pulse 99 Oximetry 06/03/17 06/03/17 06/03/17 18:03 18:04 19:19 Temperature 100.2 F Pulse Rate 80 Respiratory 16 18 18 Rate Blood Pressure 111/58 (mmHg) O2 Sat by Pulse 95 Oximetry 06/03/17 06/03/17 06/03/17 20:00 20:04 23:42 Temperature 98.2 F Pulse Rate 83 Respiratory 16 16 16 Rate Blood Pressure 109/59 (mmHg) O2 Sat by Pulse 93 Oximetry 06/03/17 06/04/17 06/04/17 23:47 00:00 00:47 Temperature Pulse Rate Respiratory 18 16 Rate Blood Pressure (mmHg) O2 Sat by Pulse 93 Oximetry 06/04/17 06/04/17 06/04/17 04:02 04:28 06:02 Temperature 98.4 F Pulse Rate 82 Respiratory 18 15 16 Rate Blood Pressure 101/46 (mmHg) O2 Sat by Pulse 91 Oximetry 06/04/17 07:31 Temperature 98.2 F Pulse Rate 79 Respiratory 17 Rate Blood Pressure 103/55 (mmHg) O2 Sat by Pulse 97 Oximetry Oxygen Devices in Use Now: None Appearance: Older male patient, lying in bed, NAD Eyes: No Scleral Icterus Ears/Nose/Mouth/Throat: Mucous Membranes Moist Neck: NL Appearance and Movements; NL JVP Respiratory: Symmetrical Chest Expansion and Respiratory Effort, Clear to Auscultation Cardiovascular: RRR - soft systolic murmur Abdominal: NL Sounds; No Tenderness; No Distention Extremities: No Clubbing, Cyanosis, - - left knee dressing c/d/i, distally nvi Neurological: Alert and Oriented x 3 - forgetful Lines/Tubes/Other Access: Clean, Dry and Intact Peripheral IV Result Diagrams: 06/04/17 05:33 06/03/17 04:55 Microbiology and Other Data: Microbiology 06/02/17 14:20 Anaerobic Culture - Preliminary Wound - Knee Left No Growth Day 1 Gram Stain - Final Wound Culture - Preliminary No Growth Day 1 Assess/Plan/Problems-Billing Assessment: Mr. Rodríguez is a 77 yo male with a PMH of NALINI, memory impairment, HTN, COPD, and prostate ca who is now s/p left knee arthroplasty revision. - Patient Problems (1) Status post revision of total replacement of left knee Code(s): Z96.652 - PRESENCE OF LEFT ARTIFICIAL KNEE JOINT Comment: POD #2 Management per ortho HH stable PT/OT Change acetaminophen to q8h dosing ATC Added tramadol to try this AM (to avoid exceeding recommended acetaminophen dose ) PRN oxycodone also available (2) NALINI (obstructive sleep apnea) Code(s): G47.33 - OBSTRUCTIVE SLEEP APNEA (ADULT) (PEDIATRIC) Comment: Had significant weight loss and has been off CPAP No new O2 needs (3) Memory impairment Code(s): R41.3 - OTHER AMNESIA Comment: Continue rivastigmine. (4) HTN (hypertension) Code(s): I10 - ESSENTIAL (PRIMARY) HYPERTENSION Comment: Normotensive Not on home medications (5) COPD (chronic obstructive pulmonary disease) Code(s): J44.9 - CHRONIC OBSTRUCTIVE PULMONARY DISEASE, UNSPECIFIED Comment: Stable Not on chronic medications (6) History of prostate cancer Code(s): Z85.46 - PERSONAL HISTORY OF MALIGNANT NEOPLASM OF PROSTATE Comment: Prostatectomy in 2002 With hx of penile implant (7) DVT prophylaxis Comment: Per ortho Enoxaparin and warfarin Status and Disposition: Inpatient admission. Dispo per ortho.
[2017-06-04 11:48] VITALS: BP 106/50
--- NOTE | 2017-06-04 13:36 | PN ---
Progress Note - Progress Note Date of Service: 06/04/17 SOAP: Subjective: []Patient seen OOB in chair, present. Slight confusion at times, alert and pleasant today. Moderate left knee pain at times. Medications altered to tylenol TID scheduled with Tramadol for breakthru pain. He is feeling ready to go home today. His is present and is in agreement. Objective: [] Vital Signs Temp 97.9 F 06/04/17 11:05 Pulse 75 06/04/17 11:05 Resp 18 06/04/17 12:57 BP 106/50 06/04/17 11:05 Pulse Ox 95 06/04/17 11:05 Intake & Output 06/03/17 06/04/17 06/04/17 18:59 06:59 18:59 Intake Total 1751 1210 225 Output Total 625 200 Balance 1126 1010 225 Intake: IVPB 1026 ABX - CEFAZOLIN 110 LR 916 Oral 725 1210 225 Output: Urine 200 200 Patricia 425 Other: Estimated Void Small # Voids 1 Laboratory Results - last 24 hr 06/04/17 06/04/17 05:33 05:33 Hgb 9.2 L Hct 27 L INR (Anticoag Therapy) 1.14 H Left knee dressings were again changed this afternoon and reveal scant bloody drainage on 4x4s. No active bleeding at incision site. New 4x4s, 1 ABD and HUMBERTO re applied wound overall benign calf NT and soft +DF/PL left ankle sensation and circulation intact Assessment: []s/p revision left total knee arthroplasty POD #2 Plan: []Continue PT exercises as learned, WBAT Discontinue Coumadin per Dr. 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 Hough
--- NOTE | 2017-06-05 01:01 | DS ---
DISCHARGE SUMMARY: DATE OF ADMISSION: 06/02/17 DATE OF DISCHARGE: 06/04/17 ATTENDING PHYSICIAN: Dr. Melissa Hough * (DICTATED BY NIGHAT SAGE) ADMISSION DIAGNOSES: Painful left total knee arthroplasty with periprosthetic osteolysis and heterotopic ossification. DISCHARGE DIAGNOSES: Painful left total knee arthroplasty with periprosthetic osteolysis and heterotopic ossification. SURGERY PERFORMED: Revision, left total knee arthroplasty. HOSPITAL COURSE: The patient is a 77-year-old male who has been followed from 2008 after having increased difficulties with his knee replacement done at an outside facility. Especially, over the last 2 years, his pain became severe along the medial aspect of his knee and around the patellar region as well. His x-rays revealed medial tibial baseplate loosening and medial femoral loosening with heterotropic bony ossification in the patellar region. Due to his ongoing severe pain and radiographic findings, it was felt he would benefit from revision of the total knee. He elected to proceed and was taken to the operating room under the care of Dr. Melissa Hough on the date of 06/02/17. He tolerated the revision surgery well and left the operating room in stable condition. Intraoperatively, a Hemovac drain was not placed due to gnosticism preference to not receive blood products. He did have moderate serosanguineous drainage noted on the morning of postoperative day #2. His hemoglobin and hematocrit levels, however, remained stable during his hospital stay. He does have some memory loss/dementia, which was followed closely with his other medical problems, comanaged by the hospitalist. A new dressing was applied in the afternoon of 06/04/17 and there was only scant amount of blood drainage on his dressing. CONDITION ON DISCHARGE: His temperature was 97.9, pulse 75, respiratory rate 17 , O2 sat on room air 95%, and blood pressure 106/50. His hemoglobin 9.2, hematocrit 27, INR 1.14. His incision failed to show any acute bloody drainage. There was no erythema or evidence of infection. His calf is nontender and soft. His neurovascular status is intact. He has active dorsiflexion and plantar flexion of the left ankle. New 4x4's, ABD, and Blue wrap applied to the left knee. Dr. Hough has requested that the Coumadin be discontinued and he be switched to aspirin 325 mg p.o. b.i.d. He was also given a prescription of tramadol 50 mg p.o. q.6 hours p.r.n. pain to take in place of the Percocet, which causes some increased confusion. Dr. Hough requests a followup next Thursday. The patient's will call the office to schedule this appointment. If there are any noted concerns with increased drainage, redness, fever, chills, calf pain, or swelling, the office will be contacted. He will continue with his physical therapy exercises, bearing weight as tolerated on the left lower extremity. NIGHAT SAGE [id number]/[facility] #: [id number] MARY
== END 2017-06-04 13:57 | DRG 468 ==
LOC: AA 09:22 → SSU 19:39
PROVIDERS: ADMIT Orthopaedic Surgery Adult Reconstructive Orthopaedic Surgery; ATTEND Orthopaedic Surgery Adult Reconstructive Orthopaedic Surgery
PROC: 0SRD0J9 Replacement of Left Knee Joint with Synthetic Substitute, Cemented, Open Approach (ICD-10-PCS; 2017-06-02)
PROC: 0SPD0JZ Removal of Synthetic Substitute from Left Knee Joint, Open Approach (ICD-10-PCS; principal; 2017-06-02 12:00)
DX: T84.84XA Pain due to internal orthopedic prosthetic devices, implants and grafts, initial encounter (principal); J44.9 Chronic obstructive pulmonary disease, unspecified; T84.053A Periprosthetic osteolysis of internal prosthetic left knee joint, initial encounter; F03.90 Unspecified dementia, unspecified severity, without behavioral disturbance, psychotic disturbance, mood disturbance, and anxiety; Z85.46 Personal history of malignant neoplasm of prostate; Z96.653 Presence of artificial knee joint, bilateral; Z83.3 Family history of diabetes mellitus; Z82.49 Family history of ischemic heart disease and other diseases of the circulatory system; Z80.42 Family history of malignant neoplasm of prostate; Z82.3 Family history of stroke; G47.33 Obstructive sleep apnea (adult) (pediatric); I10 Essential (primary) hypertension; Y79.2 Prosthetic and other implants, materials and accessory orthopedic devices associated with adverse incidents; Y92.9 Unspecified place or not applicable; Z87.891 Personal history of nicotine dependence; Z79.82 Long term (current) use of aspirin
CPT/HCPCS: 36415; 76000; 80048; 85014; 85018; 85610; 87070; 87073; 87205; 88300; 94760; A9270-GY; J0690; J1100; J1200; J1650; J1885; J2250; J2405; J2704; J2795; J3010

== ENCOUNTER 2017-08-20 09:27 | Inpatient (IN) | payer MEDICARE, BC ==
--- NOTE | 2017-08-10 16:16 | HP ---
HISTORY AND PHYSICAL: DATE OF ADMISSION/SURGERY: 08/20/17 DATE OF OFFICE VISIT: 08/10/17 SURGEON: Melissa Hough MD * (DICTATED BY NIGHAT HOWARD) PROCEDURE: Left total hip arthroplasty. CHIEF COMPLAINT: Left hip pain. HISTORY OF PRESENT ILLNESS: Mr. Rodríguez is a 77-year-old gentleman with complaints of left hip pain secondary to advanced osteoarthritis. He has failed conservative management and elected to proceed with a left total hip arthroplasty which is scheduled for 08/20/[address] Hough. PAST MEDICAL HISTORY: History of prostate cancer. PAST SURGICAL HISTORY: Prostatectomy, tonsillectomy, bilateral total knee arthroplasties, and left total knee revision. CURRENT MEDICATIONS: 1. Tramadol. 2. Exelon. 3. Aspirin. 4. Fish oil. ALLERGIES: None. FAMILY HISTORY: MA, stroke, prostate cancer. SOCIAL HISTORY: A 77-year-old, lives with his . He does not smoke or use drugs. Uses occasional alcohol. REVIEW OF SYSTEMS: A complete 14-point review of systems was reviewed with the patient, is all negative or noncontributory. PHYSICAL EXAMINATION GENERAL: Well-developed, well-nourished, in no acute distress. VITAL SIGNS: He stands 6 feet 1 inch tall, weighs 208 pounds. Blood pressure 110/80, heart rate 64. HEENT: Normocephalic, atraumatic. NECK: Supple. No palpable lymph nodes. PULMONARY: The lungs are clear to auscultation bilaterally. CARDIO: Regular rate and rhythm. Strong S1 and S2. ABDOMEN: Soft, nontender, and nondistended. NEUROLOGIC: Alert and oriented x3. Cranial nerves II through XII are intact. MUSCULOSKELETAL: Left lower extremity: The skin is intact. There are no open wounds or abrasions. He walks with an antalgic-type gait favoring his left hip. He has limited internal and external rotation of the left hip. 2+ dorsalis pedis pulse with intact sensation. All of his lower extremity muscle group strengths are intact at 5/5. ASSESSMENT AND PLAN: Mr. Rodríguez is a 77-year-old gentleman with complaints of left hip pain secondary to end-stage osteoarthritis. He has failed conservative management and elected to proceed with a left total hip arthroplasty, which is scheduled for 08/20/[address] Hough discussed the risks and benefits of the surgery at today's visit and all of his questions were answered. Aspirin 325 and Percocet were sent to his pharmacy for postoperative pain control and DVT prophylaxis. He will see Dr. Hough back 2 weeks after the surgery. NIGHAT HOWARD [id number]/[facility] #: [id number] MARY
[~2017-08-20 09:27] MED LIST changes: +DiMENhydriNATE IV* 50 MG/ML VIAL IV PUSH PRN; +Morphine INJ* 2 MG/ML 1 ML CARPUJECT IV PRN; +Ondansetron INJ* 2 MG/ML VIAL IV PRN; +PROCHLORPERAZINE INJ 5 MG/ML 2 ML VIAL IV PRN; +fentaNYL* 50 MCG/ML 2 ML VIAL (100 MCG VIAL) IV PRN
[2017-08-20] MEDS ORDERED: Buffered Lidocaine 0.9% SYRIN* 5 ML/SYR SYRINGE ONE (09:56)
[2017-08-20] MEDS ORDERED: ceFAZolin 2 GM PREMIX (*) 2 GM/50 ML BAG IVPB ONE (09:56)
[2017-08-20] MEDS ORDERED: Famotidine IV* 10 MG/ML 2 ML (20 mg) ONE (09:56)
[2017-08-20] MEDS ORDERED: fentaNYL* 50 MCG/ML 2 ML VIAL (100 MCG VIAL) ONE ×2 (11:10→12:00)
[2017-08-20] MEDS ORDERED: KETAMINE HCL* 50 MG/ML 10 ML VIAL ONE (11:10)
[2017-08-20] MEDS ORDERED: Morphine PF AMP (0.5MG/ML)* 5 MG/10 ML AMP ONE (11:11)
[2017-08-20] MEDS ORDERED: Midazolam* 1 MG/ML 5 ML VIAL (5 MG) ONE (11:11)
[2017-08-20] MEDS ORDERED: PROCHLORPERAZINE INJ 5 MG/ML 2 ML VIAL IV PRN (12:44)
[2017-08-20] MEDS ORDERED: Naloxone* 0.4 MG/ML 1 ML VIAL IV PRN (12:44)
[2017-08-20] MEDS ORDERED: Ondansetron INJ* 2 MG/ML VIAL IV PRN (12:44)
[2017-08-20] MEDS ORDERED: DiMENhydriNATE IV* 50 MG/ML VIAL IV PUSH PRN (12:44)
[2017-08-20] MEDS ORDERED: Acetaminophen TAB* 325 MG PO PRN (14:26)
[2017-08-20] MEDS ORDERED: Polyethylene Glycol 3350* 17 GM PACKET PO PRN (14:26)
[2017-08-20] MEDS ORDERED: Bisacodyl SUPP* 10 MG SUPP PR PRN (14:26)
[2017-08-20] MEDS ORDERED: Magnesium Hydroxide LIQ* 30 ML UDC PO PRN (14:26)
[2017-08-20] MEDS ORDERED: Bupivacaine 0.5% SDV PF* 30 ML VIAL ONE (14:43)
[2017-08-20] MEDS ORDERED: Propofol* 500 MG/50 ML BTL ONE (14:43)
[2017-08-20] MEDS ORDERED: Lidocaine 2% PF * 5 ML VIAL ONE (14:43)
[2017-08-20] MEDS ORDERED: Ondansetron INJ* 2 MG/ML VIAL ONE (14:43)
[2017-08-20] MEDS ORDERED: Phenylephrine INJ* 10 MG/ML 1 ML VIAL (10 MG) ONE (14:43)
--- NOTE | 2017-08-20 14:44 | RAD ---
Indication: Intraoperative LEFT total hip replacement. Comparison: July 20, 2017 Technique: RIGHT lateral decubitus crosstable AP pelvis 1340 hours Report: Acetabular component and test fit/reamer femur component in place. Normal alignment in the AP projection. No fracture evident. Pelvic surgical clips and penile implant noted. IMPRESSION: Intraoperative control film.
--- NOTE | 2017-08-20 16:09 | RAD ---
INDICATION: Left hip arthroplasty COMPARISON: None TECHNIQUE: An AP view of the pelvis and AP views left hip in neutral and crosstable lateral position were obtained. FINDINGS: There is left hip arthroplasty. The prosthesis appears normally seated. There are no acute bony findings. There are surgical clips projecting over the minor pelvis compatible with prostatectomy. IMPRESSION: Left hip arthroplasty. No evidence of hardware failure.
--- NOTE | 2017-08-20 17:23 | RAD ---
INDICATION: Left hip total hip replacement COMPARISON: None TECHNIQUE: AP and crosstable lateral imaging of the left hip was performed. FINDINGS: There is left hip arthroplasty. The prosthesis appears normally seated. IMPRESSION: LEFT HIP ARTHROPLASTY. NO EVIDENCE OF HARDWARE FAILURE.
[2017-08-20] MEDS: Warfarin TAB(*) 6 MG PO ONE ×2 (17:49→18:00)
[2017-08-20] MEDS: Nalbuphine* 20 MG/ML 1 ML VIAL IV PRN (17:49)
[2017-08-20] MEDS: Ketorolac INJ* 30 MG/ML 1 ML VIAL IV PRN (18:44)
[2017-08-20] MEDS: oxyCODONE/Acetamin 5/325 MG* TAB PO PRN (20:26)
[2017-08-20] MEDS: Docusate CAP* 100 MG PO SCH (20:27)
[2017-08-20] MEDS: RIVASTIGMINE 1.5 MG PO SCH (20:27)
[2017-08-20] MEDS: ceFAZolin 1 GM VIAL(*) 1 GM in NS 0.9% 50 ML* 50 ML IVPB SCH (20:29)
[2017-08-21] MEDS: oxyCODONE/Acetamin 5/325 MG* TAB PO PRN ×3 (00:26→12:28)
[2017-08-21] MEDS: Nalbuphine* 20 MG/ML 1 ML VIAL IV PRN (00:45)
[2017-08-21] MEDS ORDERED: Morphine INJ* 2 MG/ML 1 ML SYRINGE (TWO MG - NEW SYRINGE VERSION) IV PRN (04:05)
[2017-08-21] MEDS ORDERED: oxyCODONE/Acetamin 5/325 MG* TAB PO PRN (04:05)
[2017-08-21] MEDS ORDERED: Ondansetron TAB* 4 MG PO PRN (04:05)
[2017-08-21] MEDS ORDERED: oxyCODONE TAB* 5 MG TAB PO PRN (04:05)
[2017-08-21] MEDS ORDERED: diPHENhydraMINE IV* 50 MG/ML 1 ml VIAL (BENADRYL) IV PRN (04:05)
[2017-08-21] MEDS: ceFAZolin 1 GM VIAL(*) 1 GM in NS 0.9% 50 ML* 50 ML IVPB SCH ×2 (04:34→12:27)
[2017-08-21 05:12] LABS: Hematocrit 31 % (42-52); Hemoglobin 10.6 g/dl (14.0-18.0)
[2017-08-21 05:28] LABS: BUN/Creatinine Ratio 24.4 (8-20); Calcium 8.8 mg/dL (8.6-10.3); EGFR African American 105.5 (>60)
[2017-08-21] MEDS: Ketorolac INJ* 30 MG/ML 1 ML VIAL IV PRN (06:47)
[2017-08-21] MEDS: Docusate CAP* 100 MG PO SCH ×2 (08:52→23:06)
[2017-08-21] MEDS: RIVASTIGMINE 1.5 MG PO SCH ×2 (08:52→23:06)
--- NOTE | 2017-08-21 11:10 | PN ---
Progress Note - Progress Note Date of Service: 08/21/17 SOAP: Subjective: 77 y/o male s/p L GABY 08/20/[address] Hough. Patient reports feeling very well, minimal pain, eager for D/C tomorrow if possible. VSS, afebrile overnight. Reviewed precautions with and patient. Objective: General- Well appearing, NAD AO MSK- + DF/PF, PT pulses 2+ b/l, neg homans sign b/l, sensation intact to light touch. Dressing intact, no drainage, erythema noted. no swelling. Vital Signs Temp 98.9 F 08/21/17 07:28 Pulse 69 08/21/17 07:28 Resp 16 08/21/17 08:52 BP 107/57 08/21/17 07:28 Pulse Ox 94 08/21/17 07:28 Intake & Output 08/20/17 08/21/17 08/21/17 18:59 06:59 18:59 Intake Total 2600 1725 420 Output Total 270 550 Balance 2330 1175 420 Weight 213 lb Intake: IV Fluids 2600 905 LR 2600 905 Oral 820 420 Output: Patricia 250 550 Residual 20 Patricia 16 Fr 20 Other: # Bowel Movements 0 Assessment: Stable 77 y/o male s/p L GABY 08/20/[address] Hough. Plan: []- Continue PT - Anticoag- 1.05 INR, continue lovenox, coumadin 8mg tonight - H&H stable, continue to monitor - POssible DC to home tomorrow Laboratory Results - last 24 hr 08/21/17 08/21/17 08/21/17 04:51 04:51 04:51 Hgb 10.6 L Hct 31 L INR (Anticoag Therapy) 1.05 Sodium 137 Potassium 4.0 Chloride 105 Carbon Dioxide 26 Anion Gap 6 BUN 22 Creatinine 0.90 Est GFR ( Amer) 105.5 Est GFR (Non-Af Amer) 82.0 BUN/Creatinine Ratio 24.4 H Glucose 130 H Calcium 8.8
[2017-08-21] MEDS: Enoxaparin(*) 40 MG/0.4 ML SYR SUBCUT SCH (14:57)
[2017-08-21] MEDS ORDERED: Cyclobenzaprine TAB* 10 MG PO PRN (15:48)
[2017-08-21] MEDS ORDERED: Warfarin TAB(*) 10 MG PO ONE (17:00)
[2017-08-21] MEDS ORDERED: Warfarin TAB(*) 4 MG PO ONE (17:00)
--- NOTE | 2017-08-21 21:48 | OP ---
DATE OF OPERATION: 08/20/17 - ROOM #336 DATE OF : 42 SURGEON: Melissa Hough MD EMAIL MARKETING COORDINATOR: NIGHAT Mancuso. Ms. Caceres did help throughout the procedure with preparation of the leg, wound retraction, manipulation of the hip , and wound closure. ANESTHESIOLOGIST: Dr. Ybarra. ANESTHESIA: Spinal. 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 OPERATIVE PROCEDURE: Left total hip arthroplasty with acetabular bone autografting. COMPLICATIONS: None. ESTIMATED BLOOD LOSS: 400 cc. SPECIMENS: Femoral head and acetabular reaming sent to Pathology. HARDWARE USED: Uncemented [place] total hip hardware. For the cup, Tritanium hemispherical cluster hole shell 62G, a single 20 mm cancellous bone screw. For the insert, an MDM cementless liner 48G. For the stem, an Accolade TMZF size 4.5 with a 132-degree neck. For the head, a [place] LFIT V40 femoral head 28 -4. For the insert, an MDM mormon X3 insert 28/54/48G. BRIEF HISTORY/INDICATION: Mr. Rodríguez is a 77-year-old gentleman with years of increasingly severe left hip pain. Over the last few months, his pain became acute and radiographs showed severe end-stage arthritis of the left hip with break-down of the femoral head and [id number] contact. This was severe end- stage avascular necrosis with corresponding end-stage arthritis. The patient failed conservative treatment with antiinflammatories, pain medications, ambulatory assistive devices and physical therapy. He elected to undergo left total hip arthroplasty due to continued pain and decreased quality of life. INTRAOPERATIVE FINDINGS: Intraoperatively, the patient was noted to have severe collapse of the femoral head with deformity. Acetabulum had significant loss of cartilage and significant anterior osteophyte formation as well as superior osteophyte formation. DESCRIPTION OF PROCEDURE: Mr. Rodríguez was identified in the preanesthesia unit. His left lower extremity was marked as the correct operative side. Informed consent was signed and placed in the chart. The patient was taken to the operating room and placed under spinal anesthesia. A Patricia catheter was placed. The patient was placed in the right lateral decubitus position on the peg board. All bony prominences were well padded. Left lower extremity was prepped and draped in the usual sterile fashion. Preop time-out was made to correctly identify the patient's side and site. Appropriate perioperative antibiotics were given within 1 hour of incision. A 14-cm posterior hip incision was made with the 10 blade and carried down to the fascia layer. The lateral fascia layer was incised in line with the skin incision. Charnley retractor was placed. The piriformis and conjoint tendons were identified and elevated off the posterolateral femur. These were tagged with #5 Ethibond. Electrocautery was used to make a posterolateral capsular flap and this was also tagged with #5 Ethibond. The hip was carefully dislocated. Lesser troch to center of the femoral head was estimated at 60 mm. The oscillating saw was used to make the appropriate femoral neck cut. Femoral head was extremely deformed. Autograft was obtained from the femoral head. The femur was carefully retracted anteriorly. After appropriate placement of retractors, the acetabulum was visualized. Any remaining labrum was carefully removed from around the acetabular rim. The acetabulum was sequentially reamed up to a size 61. A bleeding subchondral bone bed was obtained. There was a significant amount of subchondral cyst along the superior weightbearing portion of the acetabulum. This cystic material was cleared with a curette and the cystic areas of absent bone was filled with autografting from the femoral head and neck. A 61 trial had excellent fit. Final implant chosen was a Tritanium cluster hole shell 62G. This was impacted into the acetabulum without difficulty. Satisfactory stability was obtained as well as appropriate anteversion and abduction angle. A single 20-mm cancellous bone screw was placed in the superoposterior quadrant for extra stability. A MDM cementless liner 48G was chosen as the liner. This was impacted into the acetabulum without difficulty. The stability of the liner was checked and rechecked and noted to be stable. Thin osteotome was used to carefully remove the superior and anterior osteophytes to avoid impingement with range of motion. Attention was turned next to preparation of the femur. Attention was next turned to preparation of the proximal femur. Box cut osteotome and canal finder were used to enter the proximal femur. Proximal femur was sequentially broached up to a size 4.5. A 4.5 broach had good stability and appropriate anteversion. The 132 neck trial was chosen as well as a 28 -4 head trial and appropriate insert. The lesser troch to the center of the femoral head measured 60 mm. The hip was reduced and taken through range of motion. The hip was stable in all positions. Leg lengths and soft tissue tension were deemed to be appropriate. The hip was carefully dislocated. All trials were carefully removed. Final implant chosen was an Accolade TMZF size 4.5 with a 132-degree neck angle. This was carefully impacted into the femoral canal without difficulty. Good stability and anteversion were obtained. An LFIT V40 28- 4 femoral head chosen as the final head. Final insert chosen was an X3 mormon MDM 28/54/ 48G. This was impacted on to the femoral neck without difficulty. The hip was reduced and taken through range of motion. The hip was stable in all positions. The hip was copiously irrigated with sterile saline. Previously tagged capsule and tendons were reapproximated to the posterolateral femur through 2 trochanteric drill holes. The lateral fascia layer was closed using interrupted #1 Vicryl. The rest of the incision was closed in a layered fashion using 0 and 2-0 Vicryl. The skin was closed using running 3-0 Monocryl suture and Dermabond. Sterile Adaptic, 4x4's and paper tape were placed over the incision. The patient's anesthesia was reversed without difficulty. He was taken to the PACU in stable condition. Intended weightbearing will be weightbearing as tolerated with posterior hip precautions. Intended DVT prophylaxis will be Coumadin with a Lovenox bridge. [id number]/[facility] #: [id number] [facility]
[2017-08-22 05:08] LABS: Hematocrit 27 % (42-52); Hemoglobin 9.4 g/dl (14.0-18.0)
[2017-08-22] MEDS: RIVASTIGMINE 1.5 MG PO SCH (08:19)
[2017-08-22] MEDS: Docusate CAP* 100 MG PO SCH (08:19)
[2017-08-22] MEDS: oxyCODONE/Acetamin 5/325 MG* TAB PO PRN ×2 (08:19→12:37)
--- NOTE | 2017-08-22 09:03 | PN ---
Progress Note - Progress Note Date of Service: 08/22/17 SOAP: Subjective: POD #2 Left GABY, c/o more pain today than yesterday. States that it is in low back and radiates across thigh. No paresthesias or numbness. Denies CP/SOB/calf pain, f/c Objective: Vitals: Temp Pulse Resp BP Pulse Ox 99.6 F 74 16 122/57 95 08/22/17 07:39 08/22/17 07:39 08/22/17 08:19 08/22/17 07:39 08/22/17 07:39 Gen: A&Ox3, NAD at rest Left Hip: Incision C/D/I. Mild ecchymosis and edema. Thigh soft, minimal ttp. +f /e at knee, ankle and MTPs, N/V intact Labs: Laboratory Results - last 24 hr 08/22/17 08/22/17 04:36 04:36 Hgb 9.4 L Hct 27 L INR (Anticoag Therapy) 1.16 H Assessment: POD #2 Left GABY Plan: Pt to work with PT today, see if pain improves. Possible d/c later today INR 1.16, 10mg Coumadin tonight if staying. Probable d/c on ASA F/u with Dr. Hough 10-14 days
[2017-08-22 11:56] VITALS: BP 105/51
[2017-08-22] MEDS: Enoxaparin(*) 40 MG/0.4 ML SYR SUBCUT SCH (14:39)
[2017-08-24] MEDS ORDERED: oxyCODONE/Acetamin 5/325 MG* TAB PO PRN (12:43)
== END 2017-08-22 14:45 | disposition home health service (06) | DRG 470 ==
LOC: AA 09:27 → SSU 16:51
PROVIDERS: ADMIT Orthopaedic Surgery Adult Reconstructive Orthopaedic Surgery; ATTEND Orthopaedic Surgery Adult Reconstructive Orthopaedic Surgery
PROC: 0QU507Z Supplement Left Acetabulum with Autologous Tissue Substitute, Open Approach (ICD-10-PCS; 2017-08-20)
PROC: 0SRB0JA Replacement of Left Hip Joint with Synthetic Substitute, Uncemented, Open Approach (ICD-10-PCS; principal; 2017-08-20 12:00)
DX: M16.12 Unilateral primary osteoarthritis, left hip (principal); M87.9 Osteonecrosis, unspecified; G47.30 Sleep apnea, unspecified; I10 Essential (primary) hypertension; Z96.653 Presence of artificial knee joint, bilateral; M25.752 Osteophyte, left hip; M85.68 Other cyst of bone, other site; Z72.89 Other problems related to lifestyle; Z82.49 Family history of ischemic heart disease and other diseases of the circulatory system; Z85.46 Personal history of malignant neoplasm of prostate; Z90.79 Acquired absence of other genital organ(s); Z82.3 Family history of stroke; Z80.42 Family history of malignant neoplasm of prostate
CPT/HCPCS: 36415; 72170; 80048; 85014; 85018; 85610; A9270-GY; J0690; J1650; J1885; J2250; J2300; J2405; J2704; J3010